=== PATIENT | male | born 1980 | race African-American/Black ===

== ENCOUNTER 2016-11-15 15:40 | Emergency (ER) | payer SELFPAY ==
[2016-11-15] MEDS ORDERED: Sodium Chloride 0.9% 1000 ML 1,000 ML IV STA (16:22)
[2016-11-15] MEDS ORDERED: Pepcid 20 MG VIAL IV ONE ×2 (16:22→16:27)
[2016-11-15] MEDS ORDERED: Sodium Chloride 0.9% 1000 ML 1,000 ML ONE (16:27)
[2016-11-15] MEDS ORDERED: BENADRYL 50 MG/ML IV ONE (16:33)
[2016-11-15] MEDS ORDERED: Hydromorphone 1 mg/ml Ampule IV ONE (16:33)
[2016-11-15 16:41] LABS: BASOPHIL % 0.2 % (0.0-0.4); Eosinophil % 2.3 % (0.00-5.0); Granulocytes % 55.2 % (36.0-66.0); Mean Cell Volume 90.2 fl (78-100); Mean Corpuscular Hemoglobin 30.8 pg (26-32); Mean Platelet Volume 11.9 fl (6-9.5); Monocytes % 8.3 % (0.0-12.0); Platelet Count 175 K/mm3 (150-450); Red Blood Count 5.23 M/mm3 (4.1-5.6); Red Cell Distribution Width 14.3 % (11.5-14.0); White Blood Count 5.2 K/mm3 (4.0-10.5)
[2016-11-15 16:48] LABS: COMPLETE URINE MICROSCOPIC? NO; Collection Type CLEAN CATCH
[2016-11-15 17:02] LABS: ALBUMIN 4.2 g/dL (3.4-5.0); ALKALINE PHOSPHATASE 196 U/L (46-116); ANION GAP 11.1 MEQ/L (5-15); BILIRUBIN,TOTAL 0.2 mg/dL (0.2-1.0); BLOOD UREA NITROGEN 13 mg/dL (9-20); CHLORIDE 106 mEq/L (98-107); Carbon Dioxide 27.2 mEq/L (21-32); Glucose 130 MG/DL (70-110); LIPASE 129 U/L (73-393); Potassium 4.1 mEq/L (3.5-5.1); SGOT/AST 37 U/L (15-37); SGPT/ALT 52 U/L (12-78); SODIUM 140 mEq/L (136-145); Total Protein 7.5 gm/dL (6.4-8.2)
[2016-11-15] MEDS ORDERED: Hydromorphone 1 mg/ml Ampule ONE (17:27)
[2016-11-15] MEDS ORDERED: BENADRYL 50 MG/ML ONE (17:27)
[2016-11-15 17:35] VITALS: BP 154/91; PULSE 67; O2SAT 99
--- NOTE | 2016-11-15 18:01 | ERPHSYRPT ---
- History of Present Illness Time Seen by Provider: 11/15/16 16:15 Historian: patient Patient Subjective Stated Complaint: abd pain for four months intermittently. hx pancreatitis Triage Nursing Assessment: ambulated to room per self. skin w/d, color normal. abd soft, nontender. normal bowel sounds Physician History: CC: abd pain Hx: 35 y/o patient with no local doctor. 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 Moved to [facility] for a week and now lives in [place]. He has hx of pancreatitis. He was admitted in [place] and [facility]. He takes prilosec currently. He does not drink alcohol. He has upper abd pain today. Some nausea. No vomiting. Occ diarrhea. Not passing blood. No fever or chills. Pain reminiscent of pancreatitis so came to ER. Pain is aching and moderate. Timing/Duration: today Allergies/Adverse Reactions: No Known Drug Allergies Allergy (Unverified 11/15/16 16:22) Home Medications: Omeprazole 20 MG [Prilosec 20 mg] 20 mg PO DAILY 11/15/16 [History] Hx Tetanus, Diphtheria Vaccination/Date Given: Yes Hx Influenza Vaccination/Date Given: Yes Hx Pneumococcal Vaccination/Date Given: No - Review of Systems Constitutional: No Fever, No Chills Eyes: No Symptoms Ears, Nose, & Throat: No Symptoms Respiratory: No Cough Cardiac: No Chest Pain Abdominal/Gastrointestinal: Abdominal Pain, Nausea, No Vomiting Genitourinary Symptoms: No Dysuria, No Hematuria Musculoskeletal: No Back Pain Skin: No Rash Neurological: No Headache All Other Systems: Reviewed and Negative - Past Medical History Pertinent Past Medical History: Yes Cardiac History: Hypertension GI Medical History: Irritable Bowel, Pancreatitis - Past Surgical History Past Surgical History: Yes Musculoskeletal: Orthopedic Surgery Other Surgical History: left wrist tendons, circumcision at age 13 - Social History Smoking Status: Never smoker Exposure to second hand smoke: No Drug Use: none Patient Lives Alone: No - Nursing Vital Signs Nursing Vital Signs: Initial Vital Signs Temperature 98.2 F Temperature Source Oral Pulse Rate 67 Respiratory Rate 16 Blood Pressure [Right Arm] 154/91 Pain Intensity 7 - Physical Exam General Appearance: alert, other (pleasant male) Eye Exam: PERRL/EOMI, No scleral icterus Ears, Nose, Throat Exam: normal ENT inspection, moist mucous membranes Neck Exam: normal inspection, non-tender, supple Respiratory Exam: normal breath sounds, lungs clear Cardiovascular Exam: regular rate/rhythm, No murmur Gastrointestinal/Abdomen Exam: soft, tenderness (epigastric), No distention, No mass, No guarding Male Genitalia Exam: normal genitalia, No hernia, No testicular tenderness Back Exam: normal inspection, normal range of motion Extremity Exam: normal inspection, normal range of motion Neurologic Exam: alert, oriented x 3, cooperative, sensation nml, No motor deficits Skin Exam: warm, dry, No rash SpO2 Interpretation: normal SpO2: 99 Oxygen Delivery: Room Air - Course Nursing assessment & vital signs reviewed: Yes - Radiology Exams AAS X-ray Interpretation: Reviewed by me, Negative (no free air or obstr) Ordered Tests: Active Orders 24 hr Category Date Time Status Clean Catch Urine Specimen STAT Care 11/15/16 16:22 Active IV Insertion STAT Care 11/15/16 16:22 Active OBSTR/ACUTE ABDOMEN SERIES Stat Exams 11/15/16 16:33 Taken CBC W DIFF Stat Lab 11/15/16 16:25 Completed CMP Stat Lab 11/15/16 16:25 Completed LIPASE Stat Lab 11/15/16 16:25 Completed Lactic Acid Stat Lab 11/15/16 16:22 Completed UA Stat Lab 11/15/16 16:30 Completed Urine Triage Profile Stat Lab 11/15/16 16:30 Completed Medication Summary Discontinued Medications Generic Name Dose Route Start Last Admin Trade Name Rickq PRN Reason Stop Dose Admin Diphenhydramine HCl 25 mg 11/15/16 16:33 11/15/16 17:28 Benadryl 50 Mg/Ml IV 11/15/16 16:34 25 mg STAT ONE Administration Diphenhydramine HCl Confirm 11/15/16 17:27 Benadryl 50 Mg/Ml Administered 11/15/16 17:28 Dose 50 mg .ROUTE .STK-MED ONE Famotidine 20 mg 11/15/16 16:22 11/15/16 16:30 Pepcid 20 Mg Vial IV 11/15/16 16:23 20 mg STAT ONE Administration Famotidine Confirm 11/15/16 16:27 Pepcid 20 Mg Vial Administered 11/15/16 16:28 Dose 20 mg IV .STK-MED ONE Hydromorphone HCl 1 mg 11/15/16 16:33 11/15/16 17:29 Hydromorphone 1 Mg/Ml Ampule IV 11/15/16 16:34 1 mg STAT ONE Administration Hydromorphone HCl Confirm 11/15/16 17:27 Hydromorphone 1 Mg/Ml Ampule Administered 11/15/16 17:28 Dose 1 mg .ROUTE .STK-MED ONE Sodium Chloride 1,000 mls @ 999 mls/hr 11/15/16 16:22 11/15/16 16:30 Sodium Chloride 0.9% 1000 Ml IV 11/15/16 17:22 999 mls/hr .Q1H1M STA Administration Sodium Chloride Confirm 11/15/16 16:27 Sodium Chloride 0.9% 1000 Ml Administered 11/15/16 16:28 Dose 1,000 mls @ ud .ROUTE .STK-MED ONE Lab/Rad Data: Laboratory Result Diagrams 11/15/16 16:25 11/15/16 16:25 Laboratory Results 11/15/16 11/15/16 11/15/16 Range/Units 16:30 16:30 16:25 WBC (4.0-10.5) K/mm3 RBC (4.1-5.6) M/mm3 Hgb (12.5-18.0) gm/dl Hct (42-50) % MCV (78-100) fl MCH (26-32) pg MCHC (32-36) g/dl RDW (11.5-14.0) % Plt Count (150-450) K/mm3 MPV (6-9.5) fl Gran % (36.0-66.0) % Lymphocytes % (24.0-44.0) % Monocytes % (0.0-12.0) % Eosinophils % (0.00-5.0) % Basophils % (0.0-0.4) % Basophils # (0-0.4) Sodium 140 (136-145) mEq/L Potassium 4.1 (3.5-5.1) mEq/L Chloride 106 (98-107) mEq/L Carbon Dioxide 27.2 (21-32) mEq/L Anion Gap 11.1 (5-15) MEQ/L BUN 13 (9-20) mg/dL Creatinine 1.22 (0.55-1.30) mg/dl Estimated GFR > 60 ML/MIN Glucose 130 H (70-110) MG/DL Lactic Acid (0.4-2.0) Calcium 11.8 H (8.5-10.1) mg/dL Total Bilirubin 0.2 (0.2-1.0) mg/dL AST 37 (15-37) U/L ALT 52 (12-78) U/L Alkaline Phosphatase 196 H (46-116) U/L Serum Total Protein 7.5 (6.4-8.2) gm/dL Albumin 4.2 (3.4-5.0) g/dL Lipase 129 (73-393) U/L Ur Collection Type CLEAN CATCH Urine Color YELLOW (YELLOW) Urine Appearance CLEAR (CLEAR) Urine pH 7.0 (5-6) Ur Specific [place] 1.020 (1.005-1.025) Urine Protein NEGATIVE (Negative) Urine Glucose (UA) NEGATIVE (NEGATIVE) mg/dL Urine Ketones NEGATIVE (NEGATIVE) Urine Nitrite NEGATIVE (NEGATIVE) Urine Bilirubin NEGATIVE (NEGATIVE) Urine Urobilinogen 0.2 (0-1) mg/dL Urine WBC (Auto) NEGATIVE (NEGATIVE) Urine RBC (Auto) NEGATIVE (0-5) [place]za[place]/ul Urine Opiates Level NEG. (NEGATIVE) Ur Methadone NEG. (NEGATIVE) Urine Barbiturates NEG. (NEGATIVE) Ur Phencyclidine (PCP) NEG. (NEGATIVE) Urine Amphetamine NEG. (NEGATIVE) U Benzodiazepine Level NEG. (NEGATIVE) Urine Cocaine NEG. (NEGATIVE) Urine Marijuana (THC) NEG. (NEGATIVE) Specimen Received 11/15/16: 1630 11/15/16 11/15/16 Range/Units 16:25 16:22 WBC 5.2 (4.0-10.5) K/mm3 RBC 5.23 (4.1-5.6) M/mm3 Hgb 16.1 (12.5-18.0) gm/dl Hct 47.2 (42-50) % MCV 90.2 (78-100) fl MCH 30.8 (26-32) pg MCHC 34.1 (32-36) g/dl RDW 14.3 H (11.5-14.0) % Plt Count 175 (150-450) K/mm3 MPV 11.9 H (6-9.5) fl Gran % 55.2 (36.0-66.0) % Lymphocytes % 34.0 (24.0-44.0) % Monocytes % 8.3 (0.0-12.0) % Eosinophils % 2.3 (0.00-5.0) % Basophils % 0.2 (0.0-0.4) % Basophils # 0.01 (0-0.4) Sodium (136-145) mEq/L Potassium (3.5-5.1) mEq/L Chloride (98-107) mEq/L Carbon Dioxide (21-32) mEq/L Anion Gap (5-15) MEQ/L BUN (9-20) mg/dL Creatinine (0.55-1.30) mg/dl Estimated GFR ML/MIN Glucose (70-110) MG/DL Lactic Acid 1.8 (0.4-2.0) Calcium (8.5-10.1) mg/dL Total Bilirubin (0.2-1.0) mg/dL AST (15-37) U/L ALT (12-78) U/L Alkaline Phosphatase (46-116) U/L Serum Total Protein (6.4-8.2) gm/dL Albumin (3.4-5.0) g/dL Lipase (73-393) U/L Ur Collection Type Urine Color (YELLOW) Urine Appearance (CLEAR) Urine pH (5-6) Ur Specific [place] (1.005-1.025) Urine Protein (Negative) Urine Glucose (UA) (NEGATIVE) mg/dL Urine Ketones (NEGATIVE) Urine Nitrite (NEGATIVE) Urine Bilirubin (NEGATIVE) Urine Urobilinogen (0-1) mg/dL Urine WBC (Auto) (NEGATIVE) Urine RBC (Auto) (0-5) Iza[place]/ul Urine Opiates Level (NEGATIVE) Ur Methadone (NEGATIVE) Urine Barbiturates (NEGATIVE) Ur Phencyclidine (PCP) (NEGATIVE) Urine Amphetamine (NEGATIVE) U Benzodiazepine Level (NEGATIVE) Urine Cocaine (NEGATIVE) Urine Marijuana (THC) (NEGATIVE) Specimen Received - Progress Progress Note: 11/15/16 17:59 Medicated. IVF given. He has increased Ca and remembers being told he needs parathyroid checked. He declines CT as had prior negative CTs and GB sono. 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 Instr given. Counseled pt/family regarding: lab results, diagnosis, need for follow-up, rad results - Departure Time of Disposition: 18:00 Departure Disposition: Home Clinical Impression: Epigastric abdominal pain, Hx of pancreatitis, Hypercalcemia Condition: Stable Critical Care Time: No Referrals: DOCTOR,NO FAMILY [Primary Care Provider] - Instructions: Abdominal Pain-Adult, Hypercalcemia Additional Instructions: Howard diet with no fatty, greasy ,spicy foods. No alcohol use. No driving or operating machinery today. Return for passing blood, worsened or changed pain, fever or concerns. Call Thursday AM to arrange close follow up with primary care. Tylenol if needed for discomfort. Avoid NSAIDS. Continue your stomach pill.
--- NOTE | 2016-11-15 22:49 | XRAY ---
Indication: Abdominal pain. History of pancreatitis. Comparison: None 2 views of the abdomen nonacute and nonobstructed. Solid organs and osseous structures unremarkable. One view chest demonstrates focal eventration of the right hemidiaphragm. Remaining heart, lungs, and bony thorax normal. Impression: Nonacute abdomen and one view chest.
== END 2016-11-15 18:11 | disposition home or self-care (01) ==
LOC: ED 15:40
DX: R10.13 Epigastric pain (principal); K86.1 Other chronic pancreatitis; E83.52 Hypercalcemia; R11.0 Nausea
CPT/HCPCS: 36000; 36415; 74022; 80053; 80307; 81002; 83605; 83690; 85025; 96360; 96374; 96375; 99284; J1170; J1200

== ENCOUNTER 2017-01-21 06:00 | Day surgery (SDC) | payer OTHER ==
[~2017-01-21 06:00] MED LIST: Lactated Ringers 1,000 ML IV SCH
== END 2017-01-21 06:01 ==
LOC: SDC 06:00
PROVIDERS: ATTEND Family Medicine
DX: Z53.9 Procedure and treatment not carried out, unspecified reason (principal)